=== PATIENT | female | born 1970 | race Caucasian/White ===

== ENCOUNTER → 2019-05-08 | Outpatient (CLI) | payer OTHER ==
--- NOTE | 2019-05-08 09:19 | CT ---
EXAMINATION TYPE: CT chest w con DATE OF EXAM: 05/08/2019 COMPARISON: Radiograph 01/27/2019 HISTORY: 48-year-old female Pulmonary nodules, COPD TECHNIQUE: Contiguous axial scanning of the chest after the administration of 100 mL of Isovue 300. Coronal/sagittal reconstructions performed. CT DLP: 185.9mGycm. Automatic exposure control utilized for a dose reduction. FINDINGS: Heart normal size without pericardial effusion. Aorta normal caliber with conventional branching anatomy. Scattered nonenlarged mediastinal lymph nodes measuring up to 8 mm. There is moderate centrilobular emphysema particularly in the upper lungs with biapical pleural-paren chymal scarring. No consolidation or pleural effusion. No suspicious pulmonary nodule or mass. Tiny hiatal hernia. Visualized upper abdomen shows subcentimeter cortical hypodensity anterior left [place] too small for accurate CT characterization, probable cyst. Bones: There is mild pectus excavatum deformity. Underlying mild S-shaped scoliosis. IMPRESSION: 1. COPD with fairly moderate emphysema, greatest in the upper lungs. 2. Pectus excavatum and mild S-shaped scoliosis. 3. No acute pulmonary process or suspicious pulmonary nodule at this time.
== END | disposition home or self-care (01) ==
LOC: RADCTMAIN 08:40
PROVIDERS: ATTEND Internal Medicine
DX: J43.2 Centrilobular emphysema (principal); M41.80 Other forms of scoliosis, site unspecified; Q67.6 Pectus excavatum
CPT/HCPCS: 71260; Q9967

== ENCOUNTER → 2023-02-16 | Outpatient (CLI) | payer OTHER ==
--- NOTE | 2023-02-16 16:16 | CTL ---
EXAMINATION TYPE: CT Low Dose Lung DATE OF EXAM ORDERED: 02/16/2023 HISTORY: Z87.891 PERSONAL HISTORY OF NICOTINE DEPENDENCE. Lung cancer screening CT DLP: 94.[address] CTDI: 2.4 mGy Automated exposure control for dose reduction was used. SCREENING VISIT: First screening visit COMPARISON: CT chest 05/08/2019 TECHNIQUE: Low dose computed tomography scan was performed through the chest at 1 mm thick sections a nd reconstructed images in multiple planes at 1 mm and [address] DIAGNOSTIC QUALITY: Satisfactory FINDINGS: LUNG NODULES: Punctate left lateral upper lung calcified granuloma. Posterior peripheral right lower lobe 3.5 mm pulmonary nodule is stable (series 3, image 214). 4.7 mm pulmonary nodule along the media l aspect of the right lower lobe (series 3, image 219). 6.4 mm lateral right lower lobe pulmonary nod ule (series 3, image 205). LUNGS: COPD: Severity: Moderate Fibrosis: Severity: None Lymph nodes: None Other findings: None RIGHT PLEURAL SPACE: Effusion: None Calcification: None Thickening: None Pneumothorax: None LEFT PLEURAL SPACE: Effusion: None Calcification: None Thickening: None Pneumothorax: None HEART: Heart Size: Normal Coronary Calcification: Small Pericardial Effusion: None OTHER FINDINGS: Upper abdomen: None Bony thorax: None Supraclavicular region: None Other: None IMPRESSION: 1. Few scattered pulmonary nodules with largest measuring up to 6.4 mm. 2. Moderate COPD changes. CT LUNG RAD AND CT CHEST RECOMMENDATION: Lung-Rad 3 Probably Benign: 6 month follow-up LDCT. S Modifier (other clinically significant findings): None
== END | disposition home or self-care (01) ==
LOC: RADCTMAIN 15:23
PROVIDERS: ATTEND Internal Medicine
DX: Z12.2 Encounter for screening for malignant neoplasm of respiratory organs (principal); J44.9 Chronic obstructive pulmonary disease, unspecified; R91.8 Other nonspecific abnormal finding of lung field; Z87.891 Personal history of nicotine dependence
CPT/HCPCS: 71271

== ENCOUNTER → 2023-09-28 | Outpatient (CLI) | payer MEDICARE ==
--- NOTE | 2023-09-30 10:39 | CTL ---
EXAMINATION TYPE: CT Low Dose Lung DATE OF EXAM ORDERED: 09/28/2023 COMPARISON: 02/16/2023 HISTORY: . Low Dose CT Lung Screening CT DLP: 98.[address] CTDI: 2.7 mGy IV CONTRAST USED: None. SCREENING VISIT: Third COMPARISON: 02/16/2023 TECHNIQUE: Low dose computed tomography scan was performed through the chest at 1 millimeter thick se ctions and reconstructed images in the coronal plane at [address] DIAGNOSTIC QUALITY: Satisfactory FINDINGS: LUNG NODULES: Calcified granuloma left upper lobe. 4 mm right lower lobe pulmonary nodule is stable. 5 mm pulmonary nodule medial aspect right lower lobe is stable. Previously noted 6.4 mm pulmonary nod ule is not identified at this time. No new nodules seen. LUNGS: COPD: Severity: Moderate Fibrosis: Severity:None Lymph nodes: None Other findings: None RIGHT PLEURAL SPACE: Effusion: None Calcification: None Thickening: None Pneumothorax: None LEFT PLEURAL SPACE: Effusion: None Calcification: None Thickening: None Pneumothorax: None HEART: Heart Size: Mildly enlarged Coronary calcification: Mild Pericardial effusion: None OTHER FINDINGS: Upper abdomen: No significant abnormality Bony thorax: Degenerative changes Supraclavicular region: No significant abnormalityOther: No significant abnormalityI IMPRESSION: Sub-5 mm pulmonary nodularity. FOLLOW UP CT CHEST RECOMMENDATION: Follow-up screening in one year CT LUNG RAD: LUNG RAD CATEGORY 2 benign appearance and/or behavior
== END | disposition home or self-care (01) ==
LOC: RADCTMAIN 15:24
PROVIDERS: ATTEND Internal Medicine
DX: Z12.2 Encounter for screening for malignant neoplasm of respiratory organs (principal); R91.8 Other nonspecific abnormal finding of lung field; Z87.891 Personal history of nicotine dependence
CPT/HCPCS: 71271

== ENCOUNTER → 2025-05-17 | Outpatient (CLI) | payer OTHER ==
--- NOTE | 2025-05-18 09:25 | MR ---
EXAMINATION TYPE: MR cspine/tspine wo con DATE OF EXAM: 05/17/2025 9:08 AM COMPARISON: None. CLINICAL INDICATION: Female, 54 years old with history of M54.6,M54.2 CERVICALGIA, Burning in lower c ervical/upper thoracic into left shoulder blade TECHNIQUE: Multiplanar MultiSpin echo imaging of the cervical spine was performed. FINDINGS: C2-C3: No evidence for degenerative disc disease. No disc bulge/herniation or protrusion. No Canal stenosis. Foramina are patent bilaterally. C3-C4: No evidence for degenerative disc disease. No disc bulge/herniation or protrusion. No Canal stenosis. Foramina are patent bilaterally. C4-C5: Mild disc desiccation with posterior central disc bulge or small protrusion. No evidence for c ord contact. No central stenosis. No significant foraminal encroachment. C5-C6: Moderate disc desiccation with circumferential disc bulge greatest posteriorly. There is mild constriction of the thecal sac without overt stenosis. There is increased signal within the cervical spinal cord at this level which could reflect early myelopathy. There is mild right-sided foraminal e ncroachment. C6-C7: Mild disc desiccation with posterior disc bulge. Mild effacement ventral thecal sac. No eviden ce of herniation or central stenosis. Foramina are patent bilaterally. C7-T1: No evidence for degenerative disc disease. No disc bulge/herniation or protrusion. No Canal stenosis. Foramina are patent bilaterally. Cervical segments are intact. There is normal alignment. Cervical spinal cord is of normal signal. Craniovertebral junction relationships are within normal limits. IMPRESSION: 1. Multilevel degenerative disc disease as discussed. 2. Disc bulging at C4-5, C5-6 and C6-7. There is a suggestion of mild increased signal at C5-6 within the cervical spinal cord which could reflect artifact versus early myelopathy. Correlate clinically. EXAMINATION TYPE: MR janieine/aminahine wo con DATE OF EXAM: 05/17/2025 9:08 AM COMPARISON: None. CLINICAL INDICATION: Female, 54 years old with history of M54.6,M54.2 CERVICALGIA, Burning in lower c ervical/upper thoracic into left shoulder blade TECHNIQUE: Multiplanar MultiSpin echo imaging of the thoracic spine was performed. FINDINGS: There is a 16 degree curvature convex to the right. Disc spaces: Mild scattered degenerative disc space narrowing. Mild ventral spondylosis. Spinal canal: No evidence for canal stenosis. No intrinsic or extrinsic lesion. Thoracic spinal cord: Thoracic spinal cord is of normal caliber and signal. Paraspinal soft tissues: No evidence for paraspinal mass. No destructive lesions seen. Vertebral segments: No evidence for fracture or bony lesion. IMPRESSION: 16 degree scoliosis convex to the right. Mild scattered degenerative disc disease and spondylosis. Ot herwise unremarkable study. [facility], , 05/18/2025 9:22 AM
== END | disposition home or self-care (01) ==
LOC: RADMRIMAIN 07:57
PROVIDERS: ATTEND Family Medicine
DX: M50.321 Other cervical disc degeneration at C4-C5 level (principal); M51.34 Other intervertebral disc degeneration, thoracic region; M41.84 Other forms of scoliosis, thoracic region; M47.814 Spondylosis without myelopathy or radiculopathy, thoracic region
CPT/HCPCS: 72141; 72146